=== PATIENT | female | born 1980 | race Caucasian/White ===

== ENCOUNTER → 2019-10-09 15:23 | Outpatient (BNVA) | payer OTHER, SELFPAY | PROVIDERS: Family Provider Internal Medicine; PCP Internal Medicine; Visit Provider Internal Medicine | DX: K50.90 Crohn's disease, unspecified, without complications (principal); K92.1 Melena; R10.11 Right upper quadrant pain; K22.70 Barrett's esophagus without dysplasia | CPT/HCPCS: 80053; 81003; 85025; 85651 ==

== ENCOUNTER 2019-10-13 08:49 | Day surgery (SDC) | payer OTHER, SELFPAY ==
[2019-10-12 08:12] VITALS: BMI 24.9
--- NOTE | 2019-10-13 08:52 | PM.HPUD ---
H&P update H&P Update: DATE OF SURGERY/PROCEDURE: 10/13/19 DATE H&P PERFORMED: 10/09/19 H&P UPDATE INFORMATION: H&P completed within last 30 days and No changes to prior documentation PLANNED PROCEDURE: Operation Date: 10/13/19 10:00 Proposed Procedures p EGD/COLON(Not Applicable) - Calin De León MD s EGD/COLON(Not Applicable) - Calin De León MD Full H&P Perinent History: Medical/Surgical History: Medical History (Updated 10/09/19 @ 15:05 by Calin De León MD) Crohn's disease (Acute) Family History: Family History (Updated 10/09/19 @ 14:47 by ERIN Coles) Other Heart disease Social History: Social History Smoking and tobacco status: current every day smoker Second hand smoke exposure: No Alcohol intake: never
[2019-10-13 09:19] VITALS: BP 115/87; PULSE 105; RESP 18; TEMP 36.6; O2SAT 96
--- NOTE | 2019-10-13 09:34 | ANES.PREANES ---
Pre-Anesthetic Assessment Pre-Anesthetic Assessment: Height/Weight: Height 1.63 m Weight 65.771 kg Temp Pulse Resp BP Pulse Ox 97.8 F 105 H 18 115/87 96 10/13/19 09:19 10/13/19 09:19 10/13/19 09:19 10/13/19 09:19 10/13/19 09:19 Preop Diagnosis: RUQ pain and Hematochezia Proposed Procedure: Operation Date: 10/13/19 10:00 Proposed Procedures p EGD/COLON(Not Applicable) - Calin De León MD s EGD/COLON(Not Applicable) - Calin De León MD Was Beta Bree taken within 24 hours: N/A Last intake: Intake Last Liquid Date 10/12/19 Last Liquid Time 22:00 Last Solid Date 10/11/19 Last Solid Time 20:00 Last Intake: 00:00 Social: Social History: Tobacco Packs per day: 1/week Exam: Pre-Anes Outpt Exam: alert, oriented x 3, clear to auscultation bilaterally and regular rate & rhythm Airway: Submandibular: WNL Cervical ROM: WNL MP: 2 Dentition: Full History/ROS: No significant history except as noted and No significant complaints Pulmonary: Pulmonary: None reported CV/HEM: CV/HEM: HTN : : None reported Hepatic: Hepatic: None reported GI: GI: None reported Metabolic: Metabolic: None reported Musc/skel: Musc/skel: None reported Neuropsych: Neuropsych: None reported Anesthetic Plan: ASA status: II Anesthesia: MAC Risk of > 500 ml blood loss (7ml/kg in children): No PFSH Anesthesia PFSH: Medical History (Updated 10/09/19 @ 15:05 by Calin De León MD) Crohn's disease (Acute) Social History Smoking and tobacco status: current every day smoker Second hand smoke exposure: No Alcohol intake: never Data Anesthesia Cardiac Studies: No Data to Display
[2019-10-13 10:41] VITALS: BP 102/82; PULSE 85; RESP 16; TEMP 36.1; O2SAT 95
[2019-10-13 10:58] VITALS: BP 112/81; PULSE 80; RESP 18; O2SAT 100
[2019-10-13] MEDS: sodium chloride 0.9% 1,000 ML 30 ML (11:27)
--- NOTE | 2019-10-13 11:29 | US_ITS ---
WS: [id number] ULTRASOUND ABDOMEN LIMITED CLINICAL INFORMATION: POSTPRANDIAL PAIN COMPARISON: None. FINDINGS: Liver Size: Normal. Craniocaudal length: 14.1 cm. Echogenicity: Normal. Surface nodularity: None. Mass (size and location): None. Bile ducts Intrahepatic ducts: Normal. Common bile duct diameter: 4.1 mm. Gallbladder Normal. Gallstones: None. Gallbladder sludge: None. Gallbladder wall thickening: None. Pericholecystic fluid: None. Sonographic Franco sign: Absent. Pancreas Normal as visualized. Right kidney: Normal. Hydronephrosis: None. Size: 9.9 cm x 4.6 cm x 4.6 cm. Abdominal aorta and IVC Visualized portions are normal. Ascites: None. US/US gall bladder [id number] IMPRESSION: 1. Liver is normal. 2. Gallbladder is normal. Normal common bile duct. 3. No hydronephrosis in right kidney.
[2019-10-16 06:11] LABS: H. Pylori / CLO Test Negative
== END 2019-10-13 11:50 | disposition home or self-care (01) ==
PROVIDERS: Family Provider Internal Medicine; PCP Internal Medicine; Visit Provider Internal Medicine
PROC: 0DJ08ZZ Inspection of Upper Intestinal Tract, Via Natural or Artificial Opening Endoscopic (ICD-10-PCS; CPT 43235; principal; 2019-10-13 10:00)
PROC: 0DJD8ZZ Inspection of Lower Intestinal Tract, Via Natural or Artificial Opening Endoscopic (ICD-10-PCS; CPT 45378; 2019-10-13 10:00)
DX: K92.1 Melena (principal); K50.90 Crohn's disease, unspecified, without complications; Z82.49 Family history of ischemic heart disease and other diseases of the circulatory system; F17.210 Nicotine dependence, cigarettes, uncomplicated; K29.70 Gastritis, unspecified, without bleeding
CPT/HCPCS: 12345; 43239; 45378; 76705; 87077; 96365; J2704; J7030

== ENCOUNTER 2019-10-25 06:33 | Day surgery (SDC) | payer OTHER, SELFPAY ==
[2019-10-24 15:05] VITALS: BMI 24.3
[2019-10-25] VITALS (7 sets, daily range): BP systolic 103–132; BP diastolic 77–97; PULSE 79–95; RESP 15–21; TEMP 36.3–36.6; O2SAT 96–99
--- NOTE | 2019-10-25 07:20 | PM.HPUD ---
H&P update H&P Update: DATE OF SURGERY/PROCEDURE: 10/25/19 DATE H&P PERFORMED: 10/19/19 H&P UPDATE INFORMATION: H&P completed within last 30 days and No changes to prior documentation PLANNED PROCEDURE: Operation Date: 10/25/19 08:05 Proposed Procedures p Laparoscopic Cholecystectomy 28975 K82.9(Not Applicable) - Mikey Lauren MD Full H&P Perinent History: Medical/Surgical History: Medical History (Updated 10/19/19 @ 10:29 by Mikey Lauren MD) Cornea transplant recipient (Acute) Crohn's disease (Acute) Hypertension (Acute) Lupus (Acute) Family History: Family History (Updated 10/19/19 @ 08:58 by Juju Box LPN) Other Heart disease Denies family history of Anesthesia complication Bleeding disorder Social History: Social History Smoking and tobacco status: current every day smoker Second hand smoke exposure: No Alcohol intake: never Household members: spouse Marital status: Current occupational status: employed
--- NOTE | 2019-10-25 07:41 | ANES.PREANES ---
Pre-Anesthetic Assessment Pre-Anesthetic Assessment: Height/Weight: Height 1.63 m Weight 64.41 kg Temp Pulse Resp BP Pulse Ox 97.3 F L 95 18 130/97 98 10/25/19 07:28 10/25/19 07:28 10/25/19 07:28 10/25/19 07:28 10/25/19 07:28 Preop Diagnosis: Chronic cholecystitis Proposed Procedure: Operation Date: 10/25/19 08:05 Proposed Procedures p Laparoscopic Cholecystectomy 02952 K82.9(Not Applicable) - Mikey Lauren MD Familial anesthetic complications: No trouble with anesthesai Was Beta Bree taken within 24 hours: N/A Last intake: NPO > 8 hrs Social: Social History: Tobacco and No alcohol Packs per day: 0.5 ppd Exam: Pre-Anes Outpt Exam: alert, oriented x 3, clear to auscultation bilaterally and regular rate & rhythm Airway: Cervical ROM: WNL MP: 2 Dentition: Full Pulmonary: Pulmonary: None reported CV/HEM: CV/HEM: HTN : : None reported Hepatic: Hepatic: None reported GI: Comments: Currently nauseated, heart burn last night, Vomited a week ago Metabolic: Metabolic: None reported Musc/skel: Musc/skel: None reported Neuropsych: Neuropsych: None reported Anesthetic Plan: ASA status: II Anesthesia: General PFSH Anesthesia PFSH: Social History Smoking and tobacco status: current every day smoker Second hand smoke exposure: No Alcohol intake: never Household members: spouse Marital status: Current occupational status: employed Data Anesthesia Cardiac Studies: No Data to Display
[2019-10-25] MEDS: sodium chloride 0.9% 1,000 ML 30 ML IV (08:05)
[2019-10-25] MEDS: ciprofloxacin 400 MG/200 ML PREMIX 200 MG IV (08:13)
--- NOTE | 2019-10-25 09:13 | P.OP_ITS ---
Operative Report Date of procedure: 10/25/19 Pre-op Diagnosis: Chronic cholecystitis Post-op diagnosis: same Procedure Done: Laparoscopic cholecystectomy Open primary repair of umbilical hernia Specimens removed/disposition: Gallbladder Surgeon: Mikey Lauren Anesthesia: General Estimated blood loss (mL): 25 Condition: stable Disposition: PACU Procedure: The patient was taken to the operating room and was intubated under general anesthesia. After the antibiotic had been administered, the abdomen was prepped and draped in a sterile manner. Using a #15 blade, a 1 centimeter infraumbilical curvilinear incision was made and using an open Tyrell technique the peritoneal cavity was entered. A 10 millimeter port was placed and 15 millimeters of pneumoperitoneum was created. A 10 millimeter, 30 degrees scope was then introduced. Three 5 millimeter ports were placed in the epigastric, midclavicular and the anterior axillary line two fingerbreadths below the costal margin on the right side under the direct visualization. Ratcheted forceps were introduced into the lateral most port and was used to retract the fundus of the gallbladder cephalad and using forceps the infundibulum of the gallbladder was retracted laterally. Using L-hook cautery the peritoneum overlying the Calot's triangle was opened medially and laterally until the cystic duct and the cystic artery were skeletonized. Dissection was carried along the body of the gal lbladder and after ensuring critical view of safety, 4 clips applied on the cystic duct and 3 clips applied on the cystic artery and cut leaving, 3 clips on the remaining portion of the duct and 2 clips on the remaining portion of the artery. The rest of the gallbladder was dissected off the liver using L-hook cautery. There was no bleeding or bile leaking noted from the gallbladder fossa and the clips appeared to be in place. An EndoCatch bag was introduced to remove the gallbladder. All the ports were removed under direct visualization and there was no bleeding noted from the port sites. There was a small umbilical hernia containing omentum which was reduced and the sac was excised. The fascia at the umbilicus was closed using [id number] 0 Vicryl sutures and the subcutaneous tissue was approximated using 3-0 Vicryl sutures. The skin at all four ports were closed using 4-0 Monocryl and Dermabond. A total of 10 millimeters of 0.5% Marcaine was infiltrated around the port sites. The patient was stable throughout the procedure.
== END 2019-10-25 10:35 | disposition home or self-care (01) ==
PROVIDERS: Family Provider Internal Medicine; PCP Internal Medicine; Visit Provider Surgery
PROC: 0FT44ZZ Resection of Gallbladder, Percutaneous Endoscopic Approach (ICD-10-PCS; CPT 47562; principal; 2019-10-25 08:05)
DX: K81.1 Chronic cholecystitis (principal); K42.9 Umbilical hernia without obstruction or gangrene; Z90.710 Acquired absence of both cervix and uterus; F17.210 Nicotine dependence, cigarettes, uncomplicated; I10 Essential (primary) hypertension
CPT/HCPCS: 47562; 49585; 12345; 88304; 96365; J0744; J1100; J2405; J2704; J2710; J3010; J3490; J7030

== ENCOUNTER → 2020-04-15 08:40 | Outpatient (BNVA) | payer SELFPAY | PROVIDERS: Family Provider Internal Medicine; PCP Internal Medicine; Visit Provider Dermatology | DX: L98.8 Other specified disorders of the skin and subcutaneous tissue (principal); Z41.1 Encounter for cosmetic surgery; F17.210 Nicotine dependence, cigarettes, uncomplicated | CPT/HCPCS: 64612; 99398; G0463; J0585 ==

== ENCOUNTER → 2020-05-07 14:34 | Outpatient (BNVA) | payer OTHER, SELFPAY | PROVIDERS: Family Provider Internal Medicine; PCP Internal Medicine; Visit Provider Nurse Practitioner Family | DX: Z11.59 Encounter for screening for other viral diseases (principal); R09.81 Nasal congestion; R05 Cough; R50.9 Fever, unspecified | CPT/HCPCS: 87635 ==

== ENCOUNTER → 2020-05-20 17:43 | Outpatient (BNVA) | payer OTHER, SELFPAY | PROVIDERS: Family Provider Internal Medicine; PCP Internal Medicine; Visit Provider Nurse Practitioner Family | DX: N39.0 Urinary tract infection, site not specified (principal); Z68.23 Body mass index [BMI] 23.0-23.9, adult; F17.210 Nicotine dependence, cigarettes, uncomplicated | CPT/HCPCS: 81000 ==

== ENCOUNTER 2020-05-25 10:33 | Emergency (ER) | payer OTHER, SELFPAY ==
[2020-05-25 11:04] VITALS: BP 149/95; PULSE 103; RESP 16; TEMP 36.7; O2SAT 95; BMI 23.8
--- NOTE | 2020-05-25 11:17 | USR_ITS ---
PROCEDURE INFORMATION: Exam: US Duplex Left Lower Extremity Veins, Limited Exam date and time: 05/25/2020 11:49 AM Age: 39 years old Clinical indication: Swelling (edema) of limb; Lower extremity, left; Prior surgery; Surgery date: 6+ months; Surgery type: Lt hip; Additional info: Pain TECHNIQUE: Imaging protocol: Real-time Duplex ultrasound of the Left Lower Extremity with 2-D dillon scale, color Doppler flow and spectral waveform analysis with image documentation. Limited exam focused on the left lower extremity veins. COMPARISON: No relevant prior studies available. FINDINGS: Left deep veins: Unremarkable. The common femoral, femoral, proximal profunda femoral and popliteal veins are patent without thrombus. Normal Doppler waveforms. Normal compressibility and/or augmentation response. Left superficial veins: Unremarkable. Saphenofemoral junction is patent without thrombus. Soft tissues: Unremarkable. US/CV venous duplex [facility] [id number] IMPRESSION: No evidence of deep vein thrombosis.
--- NOTE | 2020-05-25 11:18 | W.ED.EXTPRO ---
HPI - Extremity Problem General: Chief complaint: Extremity Problem,Nontraumatic Stated complaint: LEFT CALF PAIN Time Seen by Provider: 05/25/20 11:14 History of Present Illness: HPI Narrative: Montserrat is a nice 39-year-old female who comes in complaining of left lower extremity pain. She states the pain started on morning and has been intermittent since then. She is unaware of any exacerbating or alleviating factors. Pain is mostly in her calf but will occasionally move up her leg. She denies any distal numbness or weakness. She denies any worsening when she walks. She denies any fevers or chills, chest pain or shortness of breath. Associated symptoms: Deny chest pain, fever(s) or rash Review of Systems Const: Denies: fever(s), chills, body aches, fatigue, malaise or diaphoresis Eyes: Denies: change in vision, blurry vision, photophobia, eye discomfort, eye discharge or eye redness ENMT: Denies: throat pain, odynophagia, hoarseness, swelling of lips/tongue, ear or mastoid pain, ear discharge, change in hearing or nasal discharge Card: Denies: chest pain, palpitations, irregular heart rhythm, edema, lightheadedness, syncope, pre-syncope, dyspnea on exertion or orthopnea Resp: Denies: dyspnea, productive cough, non-productive cough, wheezing, hemoptysis or chest congestion GI: Denies: abdominal pain, nausea, vomiting, hematemesis, coffee ground emesis, heartburn, diarrhea, constipation, GI cramping, hematochezia or melena : Denies: flank pain, dysuria, urinary frequency, urinary urgency or hematuria Musc: Denies: neck pain, back pain, extremity pain, extremity swelling, joint pain, joint swelling, joint redness, joint warmth or joint stiffness Skin/Breast: Denies: rash, pruritus, erythema or skin tenderness Neuro: Denies: headache(s), numbness in extremities, weakness in extremities, sensory changes, lack of coordination, difficulty walking, dizziness, vertigo, confusion, Slurred speech present or seizure-like activity Adria/Lymph: Denies: easy bruising, easy bleeding, petechiae, purpura or enlarged lymph nodes All/Imm: Denies: urticaria, throat swelling, tongue swelling, facial swelling or acute wheezing PFSH ED PFSH: Medical History Cornea transplant recipient Crohn's disease Fever Hypertension Lupus Surgical History H/O bilateral hip replacements H/O colonoscopy 10/13/19 Dr. De León H/O esophagogastroduodenoscopy 10/13/19 Dr. De León H/O: hysterectomy partial Status post laparoscopic cholecystectomy 10/25/2019 Leonidas Family History Other Heart disease Denies family history of Anesthesia complication Bleeding disorder Social History Smoking and tobacco status: current every day smoker Second hand smoke exposure: No Alcohol intake: never Substance/Drug Use: never Household members: spouse Marital status: Current occupational status: employed Physical Exam Const: COMMON NORMALS: no acute distress, patient oriented x3, no limitations, healthy appearing and well nourished GENERAL APPEARANCE: cooperative, well kempt and well developed HENMT: COMMON NORMALS: normocephalic, atraumatic, external ears normal, EAC's normal and Normal external nose present HEAD & SCALP: normal to inspection, normocephalic and atraumatic FACE & SINUS: normal facial exam and face symmetric NOSE: Normal external nose present and Normal nares present EXTERNAL EAR: Yes external ears normal EXTERNAL AUDITORY CANAL: EAC's normal MOUTH: Normal oral and palatal mucosa present, lip normal and tongue normal Eye: COMMON NORMALS: Equal, round and reactive pupils present and conjunctivae normal GENERAL EYE: appearance normal, both eyes and all related structures ALIGNMENT: Yes alignment normal PERIORBITAL: periorbital findings normal EYELID: eyelids normal CONJUNCTIVA: Yes conjunctivae normal SCLERA: sclerae normal PUPIL: Yes Equal, round and reactive pupils present Neck/C-Spine: COMMON NORMALS: full ROM, no lymphadenopathy, supple, no meningeal signs and no JVD GENERAL: Yes normal visual inspection and Yes trachea midline Chest: COMMONS NORMALS: normal inspection of the chest and normal palpation of entire chest wall Resp: COMMON NORMALS: normal respiratory effort, No retractions, No use of accessory muscles and clear to auscultation bilaterally EFFORT & INSPECTION: Yes able to speak in complete sentences and Yes symmetric chest movement AUSCULTATION: clear to auscultation bilaterally, no crackles, no rales, no rhonchi and no wheezes Cardio: COMMON NORMALS: no JVD, regular rate, regular rhythm, S1 normal heart sound present and S2 normal heart sound present RATE: regular rate RHYTHM: regular rhythm HEART SOUNDS: S1 normal heart sound present, S2 normal heart sound present, no click, no gallops, no murmurs, no rubs and abnormal split S2 GI: COMMON NORMALS: Soft to palpation and No hepatosplenomegaly present PALPATION: Yes Soft to palpation, No Tenderness to palpation present (GI), No Guarding due to palpation present (GI), No Rigid due to palpation, Yes No hepatosplenomegaly present, No Hernia present, No Palpable mass present and No Pulsatile mass present : COMMON NORMALS: Yes no CVA tenderness BLADDER/KIDNEY EXAM: Yes no CVA tenderness EXTERNAL FEMALE EXAM: No Hernia present Back/Pelvis: COMMON NORMALS: no CVA tenderness, thoracic and lumbar spine normal to inspection, no thoracic nor lumbar tenderness and thoraco-lumbar ROM normal Extremity: COMMON NORMALS: normal to inspection, full ROM, capillary refill normal, no joint enlargement and no clubbing, cyanosis or edema NARRATIVE EXTREMITY EXAM: Lt. calf pain Neuro: COMMON NORMALS: patient oriented x3, CN's II-XII intact bilaterally, moves all extremities, no focal motor deficits and no sensory deficits noted MENINGEAL SIGNS: Yes no meningeal signs SPEECH: speech normal Psych: COMMON NORMALS: mental status grossly normal, Normal thought process present, cooperative, normal affect, speech normal and activity/motor behavior normal APPEARANCE: Yes well kempt SPEECH: Yes normal speech THOUGHT PROCESS: Normal thought process present Skin: COMMON NORMALS: no rashes or lesions noted, turgor normal, no jaundice, no petechiae and no mottling GENERAL SKIN EXAM: no rashes or lesions noted and turgor normal Course Vital Signs: Vital signs: Vital Signs Temperature 98.0 F 05/25/20 11:04 Pulse Rate 103 H 05/25/20 11:04 Respiratory Rate 16 05/25/20 11:41 Blood Pressure 149/95 05/25/20 11:04 Pulse Oximetry 95 05/25/20 11:04 MDM - Extremity (Nontraumatic) MDM Narrative: Medical decision making narrative: Montserrat is a nice 39-year-old female who comes in complaining of pain in her left calf. I see no sign of cellulitis, I feel no cordlike structures to suggest superficial venous thrombosis and ultrasound reveals no DVT. I have informed her though secondary to her lupus and her medications she could be at risk for blood clot. She understands that deep calf DVTs are hard to see at times. I have informed her she will need to be retested in the next 2 to 3 days for this. She understands this and will follow-up with Dr. De León or return here. At this time I see no sign or symptom of PE. She has no chest pain, no shortness of breath, no tachycardia and she is not hypoxic. Lab Data: Labs: Lab Results 05/25/20 05/25/20 05/25/20 Range/Units 11:38 11:38 11:38 WBC 4.9 (4.0-10.0) 10^3/ uL RBC 5.20 (4.1-5.3) 10^6/u L Hgb 13.9 (11.5-15.3) g/dL Hct 43.4 (37.0-47.0) % MCV 83.5 (81-99) fL MCH 26.7 L (28.0-34.0) pg MCHC 32.0 (30.0-36.0) g/dL RDW 13.5 (12.1-15.1) % Plt Count 131 (130-400) 10^3/c mm MPV 9.8 (7.4-10.4) fL Neut % (Auto) 64.8 % Lymph % (Auto) 24.9 % Sherman % (Auto) 6.7 % Eos % (Auto) 3.0 % Baso % (Auto) 0.6 % Neut # (Auto) 3.19 (1.8-7.7) 10^3/u L Lymph # (Auto) 1.2 (0.8-4.8) 10^3/u L Sherman # (Auto) 0.3 (0.2-0.9) 10^3/u L Eos # (Auto) 0.2 (0.0-0.8) 10^3/u L Baso # (Auto) 0.0 (0.0-0.1) 10^3/u L Nucleated RBC % (a uto) 0 % Nucleated RBCs # 0.0 /100WBC D-Dimer 1.24 H (0-0.59) ug/mIFE U Sodium 139 (136-145) mmol/L Potassium 3.8 (3.5-5.1) mmol/L Chloride 105 (98-107) mmol/L Carbon Dioxide 27 (22-29) mmol/L Anion Gap 10.8 (5-19) BUN 10 (6-20) mg/dL Creatinine 1.0 H (0.5-0.9) mg/dL GFR Calculation 61.1 L (90-130) mL/min Glucose 84 (65-115) mg/dL Calculated Osmolal ity 283 L (285-295) mOsm/k g Calcium 9.3 (8.5-10.5) mg/dL Total Bilirubin 0.5 (0.15-1.2) mg/dL AST 14 (0-32) U/L ALT 11 (0-33) U/L Alkaline Phosphata se 84 (35-105) IU/L Creatine Kinase 36 (26-192) U/L Total Protein 6.3 L (6.6-8.7) g/dL Albumin 3.9 (3.5-5.2) g/dL Globulin 2.4 (1.3-4.6) g/dL HCG, Qual (Negative) 05/25/20 Range/Units 11:38 WBC (4.0-10.0) 10^3/ uL RBC (4.1-5.3) 10^6/u L Hgb (11.5-15.3) g/dL Hct (37.0-47.0) % MCV (81-99) fL MCH (28.0-34.0) pg MCHC (30.0-36.0) g/dL RDW (12.1-15.1) % Plt Count (130-400) 10^3/c mm MPV (7.4-10.4) fL Neut % (Auto) % Lymph % (Auto) % Sherman % (Auto) % Eos % (Auto) % Baso % (Auto) % Neut # (Auto) (1.8-7.7) 10^3/u L Lymph # (Auto) (0.8-4.8) 10^3/u L Sherman # (Auto) (0.2-0.9) 10^3/u L Eos # (Auto) (0.0-0.8) 10^3/u L Baso # (Auto) (0.0-0.1) 10^3/u L Nucleated RBC % (a uto) % Nucleated RBCs # /100WBC D-Dimer (0-0.59) ug/mIFE U Sodium (136-145) mmol/L Potassium (3.5-5.1) mmol/L Chloride (98-107) mmol/L Carbon Dioxide (22-29) mmol/L Anion Gap (5-19) BUN (6-20) mg/dL Creatinine (0.5-0.9) mg/dL GFR Calculation (90-130) mL/min Glucose (65-115) mg/dL Calculated Osmolal ity (285-295) mOsm/k g Calcium (8.5-10.5) mg/dL Total Bilirubin (0.15-1.2) mg/dL AST (0-32) U/L ALT (0-33) U/L Alkaline Phosphata se (35-105) IU/L Creatine Kinase (26-192) U/L Total Protein (6.6-8.7) g/dL Albumin (3.5-5.2) g/dL Globulin (1.3-4.6) g/dL HCG, Qual Negative (Negative) Imaging Data^: Left Tib-Fib: Attestation: I personally reviewed and interpreted this imaging study as follows: My impression: No acute bony or soft tissue lesions US Vascular: My impression: Tech interpretation, left lower extremity venous Doppler -negative for DVT Discharge Plan Discharge Patient Disposition: Home Clinical Impression: Acute leg pain Qualifiers: Laterality: left Qualified Code(s): M79.605 - Pain in left leg Condition: Stable Prescriptions: No Action Vyvanse 50 mg capsule 50 mg PO QAM 30 Days Qty: 30 RF: 0 nitrofurantoin monohyd/m-cryst [Macrobid] 100 mg capsule 100 mg PO Q12H 7 Days Qty: 14 RF: 0 furosemide [Lasix] 20 mg tablet See Rx Instructions .ROUTE .COMPLEX PRN (Reason: Wheezing) RF: 0 spironolacton-hydrochlorothiaz [Aldactazide] 25-25 mg tablet 1 tab PO .every other day RF: 0 doxepin 100 mg capsule 100 mg PO BEDTIME Qty: 30 RF: 3 Humira(CF) Pen 40 mg/0.4 mL pen injector kit 40 mg SUBCUT Q14D RF: 0 Vitamin C 1 tab PO DAILY PRN (Reason: unknown) RF: 0 Discharge Orders: Discharge Order (Routine); Ordered 05/25/20 Ordered By: Sanam Spencer Referrals: Calin De León MD [Primary Care Provider] - 1-3 days Discharge Diet: Usual diet Discharge Activity: Increase activity as tolerated Patient Instructions: Deep Venous Thrombosis (ED) Activity Restrictions/Additional Instructions: Please return to the ER immediately for any of the signs or symptoms listed on your discharge instruction sheets, worsening/changing of your symptoms, you are not getting better as quickly as expected, or for ANY other cause or concerns. A definitive cause for your symptoms has not been determined. There was no obvious blood clot seen on ultrasound today. If your symptoms persist more than another 2 to 3 days return here to the ER or follow-up with Dr. De León to arrange for repeat ultrasound as a developing blood clot could be present. If you develop chest pain, shortness of breath, you pass out or nearly pass out, or have any other concerns please return to the ER immediately for recheck. Even if your symptoms improve he will need a repeat ultrasound of your leg within 5 to 7 days at the latest to check for a blood clot. You can have this performed here in the ER or by Dr. De León. Discharge Date/Time: 05/25/20 12:47 Coding Level of Care Code ED [employer] Psych[employer]rist for Chg Fwd Exam Comprehensive
[2020-05-25 11:41] VITALS: RESP 16
--- NOTE | 2020-05-25 11:43 | XRR_ITS ---
PROCEDURE INFORMATION: Exam: XR Left Tibia and Fibula Exam date and time: 05/25/2020 11:44 AM Age: 39 years old Clinical indication: Pain; Lower leg; Left TECHNIQUE: Imaging protocol: XR Left tibia and fibula. Views: 2 views. COMPARISON: No relevant prior studies available. FINDINGS: Bones/joints: Osseous structures normal. No erosive changes. No periosteal response. No fracture. No soft tissue calcifications. Osseous structures about the knee normal. No joint effusion. Soft tissues unremarkable. Medial and lateral malleoli normal. ankle mortise is symmetrical. Hindfoot foot unremarkable. Tibiotalar joint and the subtalar joint normal. Linear sclerosis distal tibial metaphysis on the anterior posterior view. Likely normal variant although recommend follow-up ankle the imaging. Subtle lucency within the tibial plafond mid aspect with adjacent bony sclerosis. Possible osteochondral defect. Recommend dedicated imaging of the ankle. Soft tissues: See Bones/joints finding. XR/XR tibia fibula LT 2V [id number] IMPRESSION: Subtle lucency within the tibial plafond mid aspect with adjacent bony sclerosis. Possible osteochondral defect. Recommend dedicated imaging of the ankle.
[2020-05-25 11:47] LABS: Basophils % 0.6 %; Eosinophils # 0.2 10^3/uL (0.0-0.8); Hematocrit 43.4 % (37.0-47.0); Hemoglobin 13.9 g/dL (11.5-15.3); Lymphocytes # 1.2 10^3/uL (0.8-4.8); Lymphocytes % 24.9 %; Mean Corpuscular Hemoglobin 26.7 pg (28.0-34.0); Mean Corpuscular Volume 83.5 fL (81-99); Mean Platelet Volume 9.8 fL (7.4-10.4); Monocytes # 0.3 10^3/uL (0.2-0.9); Monocytes % 6.7 %; Neutrophils # 3.19 10^3/uL (1.8-7.7); Neutrophils % 64.8 %; Nucleated Red Blood Cells % 0 %; Platelet Count 131 10^3/cmm (130-400); Red Cell Distribution Width 13.5 % (12.1-15.1); White Blood Count 4.9 10^3/uL (4.0-10.0)
[2020-05-25 11:58] LABS: D Dimer 1.24 ug/mIFEU (0-0.59)
[2020-05-25 12:04] LABS: Alanine Aminotransferase 11 U/L (0-33); Albumin Level 3.9 g/dL (3.5-5.2); Alkaline Phosphatase 84 IU/L (35-105); Anion Gap 10.8 (5-19); Aspartate Amino Transferase 14 U/L (0-32); Blood Urea Nitrogen 10 mg/dL (6-20); Calcium 9.3 mg/dL (8.5-10.5); Carbon Dioxide 27 mmol/L (22-29); Chloride 105 mmol/L (98-107); Creatine Phosphokinase 36 U/L (26-192); Globulin 2.4 g/dL (1.3-4.6); Glomerular Filtration Rate 61.1 mL/min (90-130); Glucose 84 mg/dL (65-115); Osmolality Calculated 283 mOsm/kg (285-295); Potassium 3.8 mmol/L (3.5-5.1); Sodium 139 mmol/L (136-145); Total Bilirubin 0.5 mg/dL (0.15-1.2); Total Protein 6.3 g/dL (6.6-8.7)
[2020-05-25 12:15] LABS: HCG, Serum Qual Negative (Negative)
== END 2020-05-25 12:47 | disposition home or self-care (01) ==
PROVIDERS: Emergency Provider Emergency Medicine; PCP Internal Medicine
DX: M79.605 Pain in left leg (principal); I10 Essential (primary) hypertension; F17.210 Nicotine dependence, cigarettes, uncomplicated
CPT/HCPCS: 12345; 73590; 80053; 82550; 84703; 85025; 85378; 93971; 99282; 99283

== ENCOUNTER → 2020-06-11 08:20 | Outpatient (BNVA) | payer OTHER, SELFPAY | PROVIDERS: PCP Internal Medicine; Visit Provider Internal Medicine | DX: R25.2 Cramp and spasm (principal) | CPT/HCPCS: 83550 ==

== ENCOUNTER 2020-09-23 07:55 | Outpatient (CLI) | payer OTHER, SELFPAY ==
--- NOTE | 2020-09-23 08:06 | CT_ITS ---
WS: [id number] Exam: CT abdomen pelvis w con* [id number] Date/Time of Exam: 09/23/2020 8:06 AM Reason For Exam: ABD PAIN, NAUSEA, 10 LB WEIGHT LOSS, BLOATING HX OF CROHNS, DLP: 1102.[address] scans at [facility] use at least one of these dose optimization techniques: automat ed exposure control; mA and/or kV adjustment per patient size (includes targeted exams where dose is matched to clinical indication); or iterative reconstruction. 100 mL of nonionic contrast administere d intravenously. Lower lung zones are clear. Mild splenomegaly noted. Several splenules are noted. A subcentimeter low -attenuation density noted in the right lobe the liver which may represent a tiny cyst but too small to characterize. The liver is otherwise normal in appearance. The gallbladder is surgically absent. T he stomach is unremarkable. The abdominal aorta is normal in caliber. The portal vein and IVC are pat ent. Unremarkable kidneys and adrenal glands. No free air. No lymphadenopathy. There is mucosal thick ening of the entire colon consistent with colitis. Small bowel loops are unremarkable in appearance. No sign of acute appendix. 1 cm right ovarian cyst, 1.3 cm left ovarian cyst. No mass or adenopathy i n the pelvis. Bilateral total hip replacements obscure some detail in the pelvis. The urinary bladde r is difficult to identify and may be collapsed. No destructive bone lesions are seen. CT/CT abdomen pelvis w con* [id number] IMPRESSION: 1. Pancolitis. 2. No mass or lymphadenopathy in the abdomen or pelvis. 3. Mild splenomegaly. Additional nonacute findings as above.
[2020-09-23] MEDS: iohexol 300 mg/mL 50 mL Btl PO (08:52)
[2020-09-23] MEDS: iohexol 300 mg/mL 100 mL Btl IV (09:50)
== END 2020-09-23 07:56 | disposition home or self-care (01) ==
LOC: RADWPI 07:59
PROVIDERS: PCP Internal Medicine; Visit Provider Physician Assistant
DX: R63.4 Abnormal weight loss (principal); R11.0 Nausea; R10.10 Upper abdominal pain, unspecified; R68.81 Early satiety; K50.90 Crohn's disease, unspecified, without complications; R16.1 Splenomegaly, not elsewhere classified
CPT/HCPCS: 74177; Q9967

== ENCOUNTER → 2020-11-18 08:38 | Day surgery (SDC) | payer OTHER, SELFPAY ==
[2020-11-18 08:59] VITALS: BP 123/95; PULSE 106; RESP 16; TEMP 37; O2SAT 98
== END ==
PROVIDERS: PCP Internal Medicine; Visit Provider Internal Medicine
DX: K50.90 Crohn's disease, unspecified, without complications (principal)
CPT/HCPCS: 96365; J7050

== ENCOUNTER → 2021-02-19 08:16 | Outpatient (BNVA) | payer OTHER, SELFPAY | PROVIDERS: PCP Internal Medicine; Visit Provider Internal Medicine | DX: N39.0 Urinary tract infection, site not specified (principal) | CPT/HCPCS: 81000; 87086 ==

== ENCOUNTER → 2021-12-15 14:41 | Outpatient (BNVA) | payer OTHER, SELFPAY | PROVIDERS: PCP Internal Medicine; Visit Provider Registered Nurse Neonatal Intensive Care | DX: N39.0 Urinary tract infection, site not specified (principal) | CPT/HCPCS: 81000; 87086 ==

== ENCOUNTER → 2022-01-06 12:13 | Outpatient (BNVA) | payer OTHER, SELFPAY | PROVIDERS: PCP Internal Medicine; Visit Provider Internal Medicine | DX: K50.90 Crohn's disease, unspecified, without complications (principal) | CPT/HCPCS: 80053; 85651 ==

== ENCOUNTER 2022-12-15 14:25 | Oncology outpatient (recurring) (ONCR) | payer OTHER, SELFPAY ==
[2022-12-15 14:42] VITALS: BP 130/87; PULSE 95; TEMP 36.2; O2SAT 99
[2022-12-15] MEDS: sodium chloride 0.9% 250 ML IV (15:17)
[2022-12-15] MEDS: vedolizumab 300 MG in sodium chloride 0.9% 250 ML 500 MG IV (15:18)
[2022-12-15 15:54] VITALS: BP 132/89; PULSE 90; TEMP 36.8; O2SAT 99
== END 2022-12-25 23:59 | disposition home or self-care (01) ==
PROVIDERS: PCP Internal Medicine; Visit Provider Internal Medicine
DX: K50.811 Crohn's disease of both small and large intestine with rectal bleeding (principal); Z79.899 Other long term (current) drug therapy
CPT/HCPCS: 96365; J3380; J7050

== ENCOUNTER 2022-12-29 14:50 | Oncology outpatient (recurring) (ONCR) | payer OTHER, SELFPAY ==
[2022-12-29 14:52] VITALS: BP 142/105; PULSE 103; TEMP 37.1; O2SAT 95
[2022-12-29] MEDS: vedolizumab 300 MG in sodium chloride 0.9% 250 ML 500 MG IV (15:16)
[2022-12-29 15:53] VITALS: BP 143/92; PULSE 92; TEMP 37.3; O2SAT 99
== END 2023-01-24 23:59 | disposition home or self-care (01) ==
LOC: ONCMED 14:50
PROVIDERS: PCP Internal Medicine; Visit Provider Internal Medicine
DX: K50.811 Crohn's disease of both small and large intestine with rectal bleeding (principal); Z79.899 Other long term (current) drug therapy
CPT/HCPCS: 96365; J3380; J7050

== ENCOUNTER 2023-01-25 17:11 | Emergency (ER) | payer OTHER, SELFPAY ==
[2023-01-25] VITALS (7 sets, daily range): BP systolic 117–149; BP diastolic 90–105; PULSE 80–119; RESP 14–20; TEMP 36.7; O2SAT 96–100; BMI 23.9
--- NOTE | 2023-01-25 17:37 | ED_ITS ---
HPI - Abdominal Pain General: Chief Complaint: Abdominal Pain Stated Complaint: pain all over (chrones & Lupes) Time Seen by Provider: 01/25/23 17:21 History of Present Illness: Patient presents with diffuse abdominal pain. Patient has a history of Crohn's disease and has been in the process of changing medicines. Patient is already on oral steroids. Patient says this is a flareup of her Crohn's and other than being more severe is similar to all the flareups in the past. Patient denies any urinary tract like symptoms at this time. MD elicited complaint: abdominal pain Pertinent past history: other (Crohn's) Pain Consistency: constant Location: Diffuse Severity: moderate Migration to: no migration Exacerbating factors: nothing Relieving factors: nothing Context: history of similar episodes Associated Symptoms: Reports nausea and vomiting; Denies chills, dysuria and fever(s) Review of Systems General: Reports: 10 or more systems reviewed and unremarkable except in HPI and below Const: Denies: fever(s) or chills Eyes: Denies: change in vision or photophobia ENMT: Denies: odynophagia Card: Denies: chest pain or edema Resp: Denies: dyspnea, productive cough or non-productive cough GI: Reports: abdominal pain, nausea and vomiting : Denies: flank pain, difficulty voiding or dysuria PFSH ED PFSH: Medical History (Updated 01/25/23 @ 19:57 by Reinaldo Sharpe DO) Cornea transplant recipient Crohn's disease Fever Hypertension Lupus Surgical History H/O bilateral hip replacements H/O colonoscopy 10/13/19 Dr. De León H/O esophagogastroduodenoscopy 10/13/19 Dr. De León H/O: hysterectomy partial Status post laparoscopic cholecystectomy 10/25/2019 [facility] Family History Other Heart disease Denies family history of Anesthesia complication Bleeding disorder Social History Smoking and tobacco status: former smoker Second hand smoke exposure: No Alcohol intake: never Substance/Drug Use: never Household members: spouse Marital status: Current occupational status: employed Physical Exam Const: COMMON NORMALS: no acute distress, average body habitus, patient oriented x3, no limitations, healthy appearing, alert and well nourished HENMT: COMMON NORMALS: normocephalic, atraumatic, hearing grossly normal bilaterally, external ears normal, Normal external nose present and moist oral mucous membranes HEAD & SCALP: normocephalic and atraumatic NOSE: Normal external nose present EXTERNAL EAR: Yes external ears normal Eye: COMMON NORMALS: Equal, round and reactive pupils present, EOMs intact bilaterally, conjunctivae normal and no scleral icterus CONJUNCTIVA: Yes conjunctivae normal PUPIL: Yes Equal, round and reactive pupils present Neck/C-Spine: COMMON NORMALS: full ROM, no lymphadenopathy, supple, no meningeal signs, no JVD and Thyroid normal THYROID: Thyroid normal Chest: COMMONS NORMALS: normal inspection of the chest and normal palpation of entire chest wall Resp: COMMON NORMALS: normal respiratory effort, No retractions, No use of accessory muscles and clear to auscultation bilaterally AUSCULTATION: clear to auscultation bilaterally Cardio: COMMON NORMALS: no JVD, regular rate, regular rhythm, S1 normal heart sound present, S2 normal heart sound present, No gallops present (Cardio), No cl icks present (Cardio), No murmurs present (Cardio) and No rub (Cardio) RATE: regular rate RHYTHM: regular rhythm HEART SOUNDS: S1 normal heart sound present and S2 normal heart sound present GI: COMMON NORMALS: Soft to palpation and No hepatosplenomegaly present INSPECTION: Yes normal to inspection AUSCULTATION: Yes normoactive bowel sounds PALPATION: Yes Soft to palpation, Yes Tenderness to palpation present (GI) Details: LLQ, RLQ, LUQ and RUQ, Yes No hepatosplenomegaly present, No Hepatomegaly present, No Splenomegaly present, No Pulsatile mass present, No Rebound tenderness present and No Bladder palpation abnormal : BLADDER/KIDNEY EXAM: No Bladder palpation abnormal Neuro: COMMON NORMALS: patient oriented x3 SENSORIUM/ORIENTATION: Yes alert MENINGEAL SIGNS: Yes no meningeal signs Course Vital Signs: Vital signs: Vital Signs Temperature 98.0 F 01/25/23 17:16 Pulse Rate 94 01/25/23 19:05 Respiratory Rate 14 01/25/23 19:13 Blood Pressure 124/90 01/25/23 19:05 Pulse Oximetry 96 01/25/23 19:05 Oxygen Delivery Me thod Room Air 01/25/23 17:16 MDM - Abdominal Pain Medical Decision Making Patient presents to the ER with complaints of diffuse abdominal pain similar to her Crohn's flareups. Patient is currently in the middle of changing medicines for her Crohn's disease. Patient was given Toradol and Zofran with minimal relief and then she was given morphine and Reglan with good relief. Labs were reviewed. Patient will be discharged home to follow-up with her primary care physician within the next 1 week. Differential Diagnosis Likely abdominal pain; Unlikely acute appendicitis, calculus of kidney, constipation, diverticulitis, endometriosis, gastroenteritis, pancreatitis or small bowel obstruction Medical Records I reviewed the patient's medical records. Lab Data I reviewed the patient's lab results. 01/25/23 17:25 01/25/23 17:25 Labs/Radiology: Laboratory Results WBC 5.7 10^3/uL (4.0-10.0) 01/25/23 17:25 RBC 5.12 10^6/uL (4.1-5.3) 01/25/23 17:25 Hgb 13.9 g/dL (11.5-15.3) 01/25/23 17:25 Hct 43.3 % (37.0-47.0) 01/25/23 17:25 MCV 84.6 fl (81-99) 01/25/23 17:25 MCH 27.1 pg (28.0-34.0) L 01/25/23 17:25 MCHC 32.1 g/dL (30.0-36.0) 01/25/23 17:25 RDW 14.6 % (12.1-15.1) 01/25/23 17:25 Plt Count 153 10^3/cmm (130-400) 01/25/23 17:25 MPV 9.5 fL (7.4-10.4) 01/25/23 17:25 Neut % (Auto) 65.4 % 01/25/23 17:25 Lymph % (Auto) 22.6 % 01/25/23 17:25 [place] % (Auto) 9.8 % 01/25/23 17:25 Eos % (Auto) 1.1 % 01/25/23 17:25 Baso % (Auto) 0.7 % 01/25/23 17:25 Neut # (Auto) 3.73 10^3/uL (1.8-7.7) 01/25/23 17:25 Lymph # (Auto) 1.3 10^3/uL (0.8-4.8) 01/25/23 17:25 [place] # (Auto) 0.6 10^3/uL (0.2-0.9) 01/25/23 17:25 Eos # (Auto) 0.1 10^3/uL (0.0-0.8) 01/25/23 17:25 Baso # (Auto) 0.0 10^3/uL (0.0-0.1) 01/25/23 17:25 Nucleated RBC % (auto) 0 % 01/25/23 17:25 Nucleated RBCs # 0.0 /100WBC 01/25/23 17:25 Sodium 138 mmol/L (136-145) 01/25/23 17:25 Potassium 4.4 mmol/L (3.5-5.1) 01/25/23 17:25 Chloride 101 mmol/L (98-107) 01/25/23 17:25 Carbon Dioxide 27 mmol/L (22-29) 01/25/23 17:25 Anion Gap 14.4 (5-19) 01/25/23 17:25 BUN 16 mg/dL (6-20) 01/25/23 17:25 Creatinine 0.7 mg/dL (0.5-0.9) 01/25/23 17:25 GFR Calculation 90.9 mL/min (90-130) 01/25/23 17:25 Glucose 92 mg/dL (65-115) 01/25/23 17:25 Calculated Osmolality 287 mOsm/kg (285-295) 01/25/23 17:25 Calcium 9.2 mg/dL (8.5-10.5) 01/25/23 17:25 Total Bilirubin 0.5 mg/dL (0.15-1.2) 01/25/23 17:25 AST 17 U/L (0-32) 01/25/23 17:25 ALT 14 U/L (0-33) 01/25/23 17:25 Alkaline Phosphatase 89 U/L (35-105) 01/25/23 17:25 Total Protein 6.6 g/dL (6.6-8.7) 01/25/23 17:25 Albumin 3.8 g/dL (3.5-5.2) 01/25/23 17:25 Globulin 2.8 g/dL (1.3-4.6) 01/25/23 17:25 Lipase 12 U/L (13-60) L 01/25/23 17:25 Urine Color Yellow (Yellow) 01/25/23 19:04 Urine Appearance Sl hazy (CLEAR) A 01/25/23 19:04 Urine pH 6 (5-7) 01/25/23 19:04 Ur Specific [place] 1.010 (1.005-1.030) 01/25/23 19:04 Urine Protein Neg (Negative) 01/25/23 19:04 Urine Glucose (UA) Norm (Normal) 01/25/23 19:04 Urine Ketones 1+ (Negative) H 01/25/23 19:04 Urine Blood Neg (Negative) 01/25/23 19:04 Urine Nitrate Negative (Negative) 01/25/23 19:04 Urine Bilirubin Neg (Negative) 01/25/23 19:04 Urine Urobilinogen Norm mg/dL (Negative) 01/25/23 19:04 Ur Leukocyte Esterase Negative (Negative) 01/25/23 19:04 Urine RBC None /hpf (0-2) 01/25/23 19:04 Urine WBC 0-4 /hpf (0-5) H 01/25/23 19:04 Ur Squamous Epith Cells 0-4 /hpf (0-5) H 01/25/23 19:04 Amorphous Sediment Not Reportable 01/25/23 19:04 Urine Bacteria Trace /hpf (NONE) 01/25/23 19:04 Urine Mucus Trace /hpf 01/25/23 19:04 Discharge Plan Discharge Patient Disposition: Home Clinical Impression: Crohn's disease Condition: Stable Prescriptions: No Action Stelara 90 mg/mL syringe 90 mg SUBCUT .every 8 weeks Qty: 6 12RF Stelara 130 mg/26 mL solution 390 mg IV ONCE Qty: 78 0RF Stelara 90 mg/mL syringe 90 mg SUBCUT .every 8 weeks Qty: 6 0RF doxepin 100 mg capsule 200 mg PO BEDTIME Qty: 60 3RF Vyvanse 50 mg capsule 50 mg PO QAM 30 Days Qty: 30 0RF Vitamin C 1 tab PO DAILY PRN (Reason: unknown) Discharge Orders: Discharge ED (Routine); Ordered 01/25/23 Ordered By: Reinaldo Sharpe Referrals: Calin De León MD [Primary Care Provider] - 1 week Patient Instructions: Crohn's Disease Coding Level of Care Code ED Mathematics Department Chair for Álvaro Serrano
[2023-01-25 17:43] LABS: Basophils % 0.7 %; Eosinophils # 0.1 10^3/uL (0.0-0.8); Eosinophils % 1.1 %; Hematocrit 43.3 % (37.0-47.0); Hemoglobin 13.9 g/dL (11.5-15.3); Lymphocytes # 1.3 10^3/uL (0.8-4.8); Lymphocytes % 22.6 %; Mean Corpuscular HGB Conc 32.1 g/dL (30.0-36.0); Mean Corpuscular Hemoglobin 27.1 pg (28.0-34.0); Mean Corpuscular Volume 84.6 fl (81-99); Mean Platelet Volume 9.5 fL (7.4-10.4); Monocytes # 0.6 10^3/uL (0.2-0.9); Monocytes % 9.8 %; Neutrophils # 3.73 10^3/uL (1.8-7.7); Neutrophils % 65.4 %; Nucleated Red Blood Cells % 0 %; Platelet Count 153 10^3/cmm (130-400); Red Blood Count 5.12 10^6/uL (4.1-5.3); Red Cell Distribution Width 14.6 % (12.1-15.1); White Blood Count 5.7 10^3/uL (4.0-10.0)
[2023-01-25] MEDS: sodium chloride 0.9% 1,000 ML 999 ML IV (17:43)
[2023-01-25] MEDS: ondansetron 2 mg/ML SDV 2 mL 4 MG IVP (17:44)
[2023-01-25] MEDS: ketorolac 30 mg/mL INJ IVP (17:44)
[2023-01-25 18:12] LABS: Alanine Aminotransferase 14 U/L (0-33); Albumin Level 3.8 g/dL (3.5-5.2); Alkaline Phosphatase 89 U/L (35-105); Anion Gap 14.4 (5-19); Aspartate Amino Transferase 17 U/L (0-32); Blood Urea Nitrogen 16 mg/dL (6-20); Calcium 9.2 mg/dL (8.5-10.5); Carbon Dioxide 27 mmol/L (22-29); Chloride 101 mmol/L (98-107); Globulin 2.8 g/dL (1.3-4.6); Glomerular Filtration Rate 90.9 mL/min (90-130); Glucose 92 mg/dL (65-115); Lipase 12 U/L (13-60); Osmolality Calculated 287 mOsm/kg (285-295); Potassium 4.4 mmol/L (3.5-5.1); Sodium 138 mmol/L (136-145); Total Bilirubin 0.5 mg/dL (0.15-1.2); Total Protein 6.6 g/dL (6.6-8.7)
--- NOTE | 2023-01-25 19:10 | PC.NURSE ---
Patient care taken over from prior RN @ 1900.
[2023-01-25] MEDS: morphine 4 mg/mL SDV 1 mL IVP (19:13)
[2023-01-25] MEDS: metoclopramide 5 mg/mL SDV 2 mL 10 MG IVP (19:13)
[2023-01-25 19:34] LABS: Bilirubin Urine Neg (Negative); Blood Urine Neg (Negative); Glucose Urine UA Norm (Normal); Ketones Urine 1+ (Negative); Leukocyte Esterase Urine Negative (Negative); Nitrate Urine Negative (Negative); Protein Urine Neg (Negative); Urine Appearance SL Hazy (CLEAR); Urine Color Yellow (Yellow); Urobilinogen Urine Norm (Negative); pH Urine 6 (5-7)
[2023-01-25 19:35] LABS: Add Urine Culture? No; Add Urine Microscopic? YES; Bacteria Urine TRACE /hpf; Mucus Urine TRACE /hpf; Squamous Epithelial Cell Urine 0-4 /hpf (0-5); WBC Urine 0-4 /hpf (0-5)
== END 2023-01-25 20:05 | disposition home or self-care (01) ==
PROVIDERS: Emergency Provider Emergency Medicine; PCP Internal Medicine
DX: K50.90 Crohn's disease, unspecified, without complications (principal); I10 Essential (primary) hypertension; Z87.891 Personal history of nicotine dependence
CPT/HCPCS: 36415; 80053; 81001; 83690; 85025; 96361; 96374; 96375; 99285; J1885; J2270; J2405; J2765; J2930; J7030

== ENCOUNTER 2023-01-26 14:59 | Oncology outpatient (recurring) (ONCR) | payer OTHER, SELFPAY ==
[2023-01-26] MEDS: vedolizumab 300 MG in sodium chloride 0.9% 250 ML 500 MG IV (15:30)
[2023-01-26 16:07] VITALS: BP 123/86; PULSE 97; TEMP 36.9; O2SAT 98
== END 2023-02-24 23:59 | disposition home or self-care (01) ==
LOC: ONCMED 15:00
PROVIDERS: PCP Internal Medicine; Visit Provider Internal Medicine
DX: K50.811 Crohn's disease of both small and large intestine with rectal bleeding (principal)
CPT/HCPCS: 96365; J3380; J7050

== ENCOUNTER 2023-02-26 15:17 | Outpatient (CLI) | payer OTHER, SELFPAY ==
--- NOTE | 2023-02-26 15:27 | CTR_ITS ---
PROCEDURE INFORMATION: Exam: CT Abdomen And Pelvis With Contrast Exam date and time: 02/26/2023 4:37 PM Age: 42 years old Clinical indication: Other: Crohns, HX lupus; Prior surgery; Surgery date: 6+ months; Surgery type: Bilat hips- from lupus at 22yo, hyst; Additional info: Crohn's dz of both small large intestine w/rectal bleeding.No history of trauma or recent surgery is provided. TECHNIQUE: Imaging protocol: Computed tomography of the abdomen and pelvis with contrast. 190image(s) are provided. Radiation optimization: All CT scans at this facility use at least one of these dose optimization techniques: automated exposure control; mA and/or kV adjustment per patient size (includes targeted exams where dose is matched to clinical indication); or iterative reconstruction. Contrast material: OMNI 350; Contrast volume: 100 ml; Contrast route: INTRAVENOUS (IV); Other contrast: Oral, OMNI 350 DILUTED, 900ML; Other technique: Axial images are available with sagittal and coronal reconstruction views. Automated dose exposure control is utilized. The DLP is 264.60. REPORTING DATA: Count of CT and Cardiac NM exams in prior 12 months: This patient has received 0 known CTs and 0 known cardiac nuclear medicine studies in the 12 months prior to the current study. COMPARISON: CT abdomen pelvis w con* [id number] 09/23/2020 9:46 AM RADIATION DOSE METRICS: Total DLP (mGy-cm): 264.6 FINDINGS: Tubes, catheters and devices: There is similar overall appearance and positioning of the hip prosthetic hardware. Lungs: No lobar consolidation is appreciated. Liver: There appears to be some mild hepatic steatosis. Gallbladder and bile ducts: Cholecystectomy clips are present. There is some slight prominence of the bile ducts overall including intrahepatic although similar. Pancreas: No interval pancreatic ductal dilatation or calcification is currently appreciated. The common bile duct appears similar with no interval radiopaque obstructive calculus currently appreciated. Spleen: There is mild splenomegaly similar overall with some granulomatous calcific and splenule appearance. Adrenal glands: Unremarkable. Kidneys and ureters: There is homogeneous renal parenchymal enhancement with no interval radiopaque obstructive calculus or hydronephrosis appreciated along the expected course. Stomach and bowel: Some aspects of the colon are undistended. This may also be peristaltic related.There is abundant stool present limiting mucosal detail evaluation.The bowel gas pattern appears nonobstructive. There is a small sliding-type hiatal hernia demonstrated with slight gastroesophageal fold thickening. There is some wall thickening with stranding demonstrated of the colon most pronounced of the splenic flexure region as well as some transverse and descending extension. No adjacent fluid collections are appreciated. Appendix: No evidence of appendicitis. Intraperitoneal space: No free air or organized free fluid collections are appreciated. Vasculature: No abdominal aortic aneurysmal dilatation or periaortic fluid is appreciated. Lymph nodes: There are subcentimeter predominant para-aortic and mesenteric lymph nodes overall present. Urinary bladder: The bladder is incompletely fluid filled for evaluation which may exagerate the wall thickness. This can also be seen with post inflammation sequela. Reproductive: There are hysterectomy changes present. Bones/joints: Osseous alignment is maintained.No interval displaced fracture or dislocation is appreciated. Soft tissues: No radiopaque foreign body or subcutaneous emphysema is appreciated. Other findings: There is some motion artifact present. There is streak artifact from the surgical hardware. No other significant interval changes are appreciated. CT/CT abdomen pelvis w con* [id number] IMPRESSION: There is colonic wall thickening and slight stranding demonstrated at the splenic flexure region predominantly suggestive of inflammation. The overall location is similar compared to the previous study and therefore could be seen with persistent chronic as well as recurrent inflammation of the site. Overall no interval free air or free fluid collections are appreciated.
[2023-02-26] MEDS: iohexol 350 mg/mL 500 mL Btl (per mL) IV (15:42)
[2023-02-26] MEDS: iohexol 350 mg/mL 500 mL Btl (per mL) PO (15:51)
== END 2023-02-26 15:18 | disposition home or self-care (01) ==
PROVIDERS: PCP Internal Medicine; Visit Provider Internal Medicine
DX: K50.811 Crohn's disease of both small and large intestine with rectal bleeding (principal)
CPT/HCPCS: 74177; Q9967

== ENCOUNTER 2023-03-23 14:41 | Oncology outpatient (recurring) (ONCR) | payer OTHER, SELFPAY ==
[2023-03-23 15:18] VITALS: BMI 23.3
[2023-03-23] MEDS: vedolizumab 300 MG in sodium chloride 0.9% 250 ML 500 MG IV (15:36)
[2023-03-23 16:30] VITALS: BP 111/74; PULSE 74; RESP 18; TEMP 36.4; O2SAT 99
== END 2023-03-26 23:59 | disposition home or self-care (01) ==
PROVIDERS: PCP Internal Medicine; Visit Provider Internal Medicine
DX: K50.811 Crohn's disease of both small and large intestine with rectal bleeding (principal)
CPT/HCPCS: J3380; J7050

== ENCOUNTER 2023-05-18 14:56 | Oncology outpatient (recurring) (ONCR) | payer OTHER, SELFPAY ==
[2023-05-18 15:27] VITALS: BP 137/87; PULSE 115; RESP 17; TEMP 36.7; O2SAT 98
[2023-05-18] MEDS: vedolizumab 300 MG in sodium chloride 0.9% 250 ML 500 MG IV (15:53)
[2023-05-18 16:43] VITALS: BP 136/99; PULSE 82; RESP 17; TEMP 36.3; O2SAT 98
== END 2023-05-27 23:59 | disposition home or self-care (01) ==
LOC: ONCMED 14:57
PROVIDERS: PCP Internal Medicine; Visit Provider Internal Medicine
DX: K50.90 Crohn's disease, unspecified, without complications (principal)
CPT/HCPCS: 96413; J3380; J7050